=== PATIENT | female | born 1990 | race Caucasian/White ===

== ENCOUNTER 2017-02-15 18:10 | Inpatient (IN) | payer OTHER ==
[~2017-02-15 18:10] MED LIST: ONDANSETRON HCL INJ/PF 4 MG/2 ML SDV ONE; PHENYLEPHRINE HCL INJ/PF 10 MG/1 ML SDV ONE; SUCCINYLCHOLINE CHLORIDE INJ 200 MG/10 ML VIAL ONE
[2017-02-15] MEDS ORDERED: RINGERS SOLUTION,LACTATED 1,000 ML IV PRN (18:38)
[2017-02-15] MEDS ORDERED: HYDROXYZINE PAMOATE 50 MG CAPSULE PO ONE (18:38)
[2017-02-15 18:42] LABS: APPEARANCE,URINE SLIGHTLY-CLOUDY; BILIRUBIN,URINE NEGATIVE (NEGATIVE); GLUCOSE, URINE NEGATIVE (NEGATIVE); KETONES,URINE 20 mg/dL (NEGATIVE); LEUKOCYTE ESTERASE,URINE LARGE (NEGATIVE); NITRITE,URINE NEGATIVE (NEGATIVE); PROTEIN,URINE NEGATIVE (NEGATIVE); URINE SPECIFIC GRAVITY 1.011; UROBILINOGEN,URINE NEGATIVE mg/dL (<2.0)
[2017-02-15 19:01] LABS: URINE BARBITURATES SCREEN NEGATIVE; URINE METHADONE SCREEN NEGATIVE; URINE OPIATES LOW NEGATIVE; URINE PHENCYCLIDINE SCREEN NEGATIVE
[2017-02-15] MEDS ORDERED: MORPHINE SULFATE 10 MG/ML INJ IV PRN (19:45)
[2017-02-15] MEDS ORDERED: PROMETHAZINE HCL INJ 25 MG/1 ML VIAL IV PRN ×2 (19:45→20:40)
[2017-02-15] MEDS ORDERED: MEPERIDINE HCL/PF INJ 25 MG/1 ML DISP.SYRIN IV PRN (19:45)
[2017-02-15] MEDS ORDERED: FENTANYL CITRATE INJ/PF 100 MCG/2 ML AMPUL IV PRN ×3 (19:45)
[2017-02-15] MEDS ORDERED: DIPHENHYDRAMINE HCL 50 MG/ML VIAL IV PRN (19:45)
[2017-02-15] MEDS ORDERED: FENTANYL CITRATE INJ/PF 100 MCG/2 ML AMPUL ONE ×2 (19:46→20:19)
[2017-02-15] MEDS ORDERED: OXYTOCIN 10 UNIT/ML VIAL ONE (19:46)
[2017-02-15 19:51] LABS: HEMOGLOBIN 10.3 g/dL (12.0-15.5); HGB HCT DIFFERENCE -0.1; MEAN CORPUSCULAR HEMOGLOBIN 26.5 pg (27.0-33.4); MEAN CORPUSCULAR HGB CONC 33.3 g/dL (32.0-36.0); MEAN CORPUSCULAR VOLUME 80 fl (80-97); RED CELL DISTRIBUTION WIDTH 13.7 % (11.5-14.0)
[2017-02-15] MEDS ORDERED: PROMETHAZINE HCL INJ 25 MG/1 ML VIAL ONE (20:18)
[2017-02-15] MEDS ORDERED: DIPHENHYDRAMINE HCL 50 MG/ML VIAL ONE (20:19)
[2017-02-15 20:35] LABS: BAND NEUTROPHILS % (MANUAL) 1 % (3-5); BASOPHILS % (MANUAL) 0 % (0-2); EOSINOPHILS % (MANUAL) 0 % (0-6); LYMPHOCYTES % (MANUAL) 12 % (13-45); TOTAL CELLS COUNTED 100
[2017-02-15 20:37] LABS: ANISOCYTOSIS SLIGHT
[2017-02-15] MEDS ORDERED: OXYCODONE-ACETAMINOPHEN 5-325 MG TABLET PO PRN (20:40)
[2017-02-15] MEDS ORDERED: DIPH/PERTUSS(ACELL)/TETANUS VAC/PF 0.5 ML SYR (>=10YO) IM PRN (20:40)
[2017-02-15] MEDS ORDERED: ACETAMINOPHEN 325 MG TABLET PO PRN (20:40)
[2017-02-15] MEDS ORDERED: ACETAMINOPHEN 100 ML IV PRN (20:40)
[2017-02-15] MEDS ORDERED: MEASLES,MUMPS&RUBELLA VACC/PF 0.5 ML VIAL SUBCUT PRN (20:40)
[2017-02-15] MEDS ORDERED: OXYTOCIN/NORMAL SALINE 20 UNIT/1,000 ML RTUINJ IV PRN (20:40)
[2017-02-15] MEDS ORDERED: PROPOFOL INJ 200 MG/20 ML VIAL IV ONE (20:43)
[2017-02-15] MEDS ORDERED: MORPHINE SULFATE 10 MG/ML INJ ONE (20:48)
[2017-02-15] MEDS ORDERED: OXYTOCIN/NORMAL SALINE 20 UNIT/1,000 ML RTUINJ ONE (21:10)
--- NOTE | 2017-02-15 22:23 | OPERATIVE REPORT E ---
Operative Report NAME: JULIO MAN : 1990 AGE: 26Y DATE OF SURGERY: 02/15/2017 ROOM: LR200 PREOPERATIVE DIAGNOSIS: 1. IUP, 39 and 5. 2. Nonreassuring heart tones. POSTOPERATIVE DIAGNOSIS: 1. IUP, 39 and 5. 2. Nonreassuring heart tones. SURGEON: MICHAEL OBRIEN M.D. ANESTHESIA: Dr. Hobbs with general. FINDINGS: A male in cephalic presentation with Apgars of 8 and 9, weight 9 pounds 15 ounces. ESTIMATED BLOOD LOSS: 600 mL. COMPLICATIONS: None. INDICATIONS: Patient had come in as a labor check and during the course of her labor check, the heart rate monitoring showed heart tones in the 70s x10 minutes with a very slow return to baseline, which never actually made full baseline, baseline being 130s and only returned to 110s. A decision was made for an emergent , which the patient agreed to. PROCEDURE IN DETAIL: Patient was taken to the operating room, prepared, draped in normal sterile fashion in the supine position with a leftward tilt. A transverse skin incision was made with a scalpel and carried through to the underlying layer of fascia with the same scalpel. The fascia was then dissected from the rectus muscle bluntly and the rectus muscle was divided. The peritoneal cavity was entered bluntly. A bladder blade was inserted and the hysterotomy was nicked with a scalpel and extended laterally with surgeon finger fracture. The was then delivered atraumatically. The nose and mouth were suctioned with a suction bulb, the cord was clamped and cut, and the was handed off to awaiting pediatricians. The cord blood was collected. The placenta was removed manually. The uterus was exteriorized and cleared of clots and debris. The hysterotomy was closed with 0 Monocryl in a running, locked fashion. A second layer of the same suture was used to imbrication to ensure hemostasis. The uterus was returned to the abdomen. The peritoneal cavity was cleared of clots and debris. The rectus muscles and peritoneum were reapproximated with a mattress stitch of 2-0 chromic; the fascia was closed with 0 Vicryl; the subcutaneous layer was closed with plain catgut, and the skin was closed with 4-0 Vicryl. The patient tolerated the procedure well. Sponge, lap and needle counts were correct x2. The patient was taken to recovery in stable condition. DICTATING PHYSICIAN: MICHAEL OBRIEN M.D. [id number] PHY#: [id number] ID: [id number] JOB#: [id number] ACCT: [id number] cc:MICHAEL OBRIEN M.D. >
--- NOTE | 2017-02-15 22:43 | Delivery Summary ---
Del Sum A-C Datetime Report Generated by CPN: 02/15/2017 22:42 DELIVERY PERSONNEL DELIVERY PERSONNEL: [id number] Delivery Doctor:: Dorita Abbasi MD Anesthesiologist:: Papo Hobbs MD ELECTRIC REFRIGERATOR SERVICER:: Philip Avery, ELECTRIC REFRIGERATOR SERVICER Labor and Delivery Nurse:: Jamee Guzmán RN Nursery Nurse:: Angelica Ross RN Histology Teacher/ELECTRICAL ASSISTANT: Tanja ST Rahat Histology Teacher/ELECTRICAL ASSISTANT: Johanna Semar, MATERIAL ASSEMBLER MATERNAL INFORMATION Delivery Anesthesia: General Medications After Delivery: Pitocin Drip 20 Units/1000ml NSS Estimated Blood Loss (ml): 500 Maternal Complications: Other Other Maternal Complications: non reassuring heart tones LABOR SUMMARY EDC: 02/17/2017 00:00 No. Babies in Womb: 1 Attempted: No Labor Anesthesia: None LABOR INFORMATION Reason for Induction: Not Applicable Onset of Labor: 02/15/2017 19:30 Oxytocin: N/A Group B Beta Strep: negative Antibiotics # of Doses: 1 Antibiotics Time of Last Dose: 1923 Name of Antibiotic Given: ancef 2g Steroids Given: None Reason Steroids Not Administered: Not Applicable MEMBRANES Membranes Rupture Method: Artificial Rupture of Membranes: 02/15/2017 19:38 Length of Rupture (hr): 0.02 Amniotic Fluid Color: Light Meconium Amniotic Fluid Amount: Moderate Amniotic Fluid Odor: Normal STAGES OF LABOR Stage 3 hr: 0 Stage 3 min: 1 Total Time in Labor hr: 0 Total Time in Labor min: 10 VAGINAL DELIVERY Episiotomy: None Laceration #1: None Laceration Extension #1: N/A CSECTION DELIVERY Primary Indication: Nonreassuring Status CSection Urgency: Emergency CSection Incidence: Primary Labor: N/A Elective: Nonelective CSection Incision: Lower Uterine Transverse BABY A INFORMATION Infant Delivery Date/Time: 02/15/2017 19:39 Method of Delivery: Born in Route : No : N/A Forceps: N/A Vacuum Extraction: N/A Shoulder Dystocia : No PRESENTATION/POSITION BABY A Presentation: Cephalic Cephalic Presentation: Vertex Vertex Position: Left Occipital Anterior Breech Presentation: N/A PLACENTA INFORMATION BABY A Placenta Delivery Time : 02/15/2017 19:40 Placenta Method of Delivery: Expressed Placenta Status: Delivered SCORES BABY A Heart Rate 1 min: >100 bpm Resp Effort 1 min: Good Cry Reflex Irritability 1 min: Cough or Sneeze or Pulls Away Muscle Tone 1 min: Active Motion Color 1 min: Blue/Pale Resuscitation Effort 1 min: Tactile Stimulation SCORE 1 MIN: 8 Heart Rate 5 min: >100 bpm Resp Effort 5 min: Good Cry Reflex Irritability 5 min: Cough or Sneeze or Pulls Away Muscle Tone 5 min: Active Motion Color 5 min: Body [place], Extremities Blue Resuscitation Effort 5 min: Tactile Stimulation SCORE 5 MIN: 9 INFORMATION BABY A Gestational Age at Delivery: 39.5 Gestational Status: Full Term- 39- 40.6 Weeks Infant Outcome : Liveborn Condition : Stable Sex: Male WEIGHT/LENGTH BABY A Birthweight (gm): 4495 Infant Weight (lb): 9 Weight (oz): 15 Infant Length (in): 22.00 Length (cm): 55.88 CORD INFORMATION BABY A No. Cord Vessels: 3 Nuchal Cord : N/A Cord Blood Taken: Yes-For Storage (Mom's Blood type +) Infant Suction: Mouth; Nose ASSESSMENT BABY A Skin to Skin: No
[2017-02-15] MEDS: RINGERS SOLUTION,LACTATED 1,000 ML IV PRN (22:52)
[2017-02-15] MEDS ORDERED: KETOROLAC TROMETHAMINE INJ/PF 30 MG/1 ML SDV ONE (23:11)
[2017-02-15] MEDS: KETOROLAC TROMETHAMINE INJ/PF 30 MG/1 ML SDV IV SCH (23:14)
--- NOTE | 2017-02-16 01:00 | Admission Physical ---
Datetime Report Generated by CPN: 02/16/2017 01:00 CURRENT ADMISSION Chief Complaint: Uterine Contractions Indication for Induction: Not Applicable Indication for Induction: Term, Intrauterine ; Obstetrical Complication Admit Plan: Admit to Unit; Initiate Section Protocol Admit Plan- Other: while in triage for labor check, FHTs decreased to70s for 10 min. emergent c/section performed ALLERGIES Medication Allergies: No Medication Allergies: No Known Allergies (04/08/2013) Latex: No Latex Allergies Food Allergies: apples, potatoes OBSTETRICAL HISTORY EDC: 02/17/2017 00:00 : 3 Para: 2 Term: 2 : 0 SAB: 0 IAB: 0 Ectopic: 0 Livin Cesareans: 0 VBACs: 0 Multiple Births: 0 Gestational Diabetes: No Rh Sensitization: No Incompetent Cervix: No ZOHREH: No Infertility: No ART Treatment: No Uterine Anomaly: No IUGR: No Hx Previous C/S: No Macrosomia: No Hx Loss/Stillborn: No PIH: No Hx : No Placenta Previa/Abruption: No Depression/PP Depression: Yes PTL/PROM: No Post Hemorrhage: No Current Procedures: Ultrasound; NST Obstetrical History Comments: G1-41.1 girl no induction-9llbs 11oz G2-38 girl induced for colystasis-9lbs 7oz G-3-current SEE RECORDS Alcohol: No Marijuana : No Cocaine: No Other Illicit Drugs: No Cigarettes: Former Smoker. [id number] Cigarette Frequency: 5 - 10 per day Cigarette Comments: stopped smoking 3 years ago MEDICAL HISTORY Blood Transfusion: No Pulmonary Disease (Asthma, TB): Yes Breast Disease: No Hypertension: No Rooming House Inspector Surgery: No Heart Disease: No Hosp/Surgery: Yes Autoimmune Disorder: No Anesthetic Complications: No Kidney Disease: No Abnormal Pap Smear: Yes Neuro/Epilepsy: No Psychiatric Disorders: No Other Medical Diseases: No Hepatitis/Liver Disease: No Significant Family History: No Varicosities/Phlebitis: No Trauma/Violence : No Thyroid Dysfunction: No Medical History Comments: childhood asthma, colon biopsy, wisdom teeth, depression/anxiety INFECTIOUS HISTORY Gonorrhea: No Genital Herpes: No Tuberculosis: No Syphilis: No Hepatitis: No HIV/AIDS Exposure: No Rash or Viral Illness: No HPV: Yes PHYSICAL EXAM General: Normal HEENT: Normal Neurologic: Normal Thyroid: Normal Heart: Normal Lungs: Normal Breast: Normal Back: Normal Abdomen: Normal Genitourinary Exam: Normal Extremities: Normal DTRs: Normal Pelvic Type: Adequate Vital Signs: Reviewed VAGINAL EXAM Dilatation: 0 Effacement: 90 Station: -2 MEMBRANES Pooling: Negative Membranes: Intact FETUS A EGA: 39.5 Monitoring: External US FHR- Baseline: 130 Variability: Minimal - Undetectable to <=5bpm Accelerations: Absent Decelerations: Prolonged FHR Category: Category III Estimated Weight (gm): 4000 Presentation: Vertex PLANS FOR LABOR AND DELIVERY Labor and Delivery: None Pain Management: Natural Feeding Preference: Breast Benefit of Breast Feed Discussed: Yes Circumcision: Yes INFORMED CONSENT Signature: with User ID: [email or web address]
[2017-02-16] MEDS: IBUPROFEN 800 MG TABLET PO SCH ×2 (06:49→22:43)
[2017-02-16] MEDS: KETOROLAC TROMETHAMINE INJ/PF 30 MG/1 ML SDV IV SCH ×2 (06:51→13:38)
[2017-02-16] MEDS: RINGERS SOLUTION,LACTATED 1,000 ML IV PRN (06:52)
[2017-02-16] MEDS: MORPHINE SULFATE 10 MG/ML INJ IV PRN ×2 (08:09→12:41)
[2017-02-16 08:24] LABS: HEMATOCRIT 24.4 % (36.0-47.0); HGB HCT DIFFERENCE 0.2; MEAN CORPUSCULAR HEMOGLOBIN 26.6 pg (27.0-33.4); MEAN CORPUSCULAR HGB CONC 33.4 g/dL (32.0-36.0); MEAN CORPUSCULAR VOLUME 79 fl (80-97); RED BLOOD COUNT 3.07 10^6/uL (3.72-5.28); RED CELL DISTRIBUTION WIDTH 13.8 % (11.5-14.0); WHITE BLOOD COUNT 18.5 10^3/uL (4.0-10.5)
[2017-02-16 08:29] LABS: HEMOGLOBIN 8.2 g/dL (12.0-15.5)
[2017-02-16] MEDS: PRENATAL VITAMIN W DHA CAPSULE PO SCH (09:14)
[2017-02-16] MEDS: DOCUSATE SODIUM 100 MG CAPSULE PO SCH ×2 (09:15→17:49)
--- NOTE | 2017-02-16 10:06 | PDOC PROGRESS REPORT ---
Subjective-OB Subjective: Post Delivery Day: 26 year old. Denies any needs at this time Doing well, holding baby, states baby's heart rate was low and needed a CS, pain under control, eating and taking fluids, feels like she needs to pass gas, Physical Exam (OB) Vital Signs: Temp Pulse Resp BP Pulse Ox 98.7 F 98 16 114/56 L 97 02/16/17 08:14 02/16/17 08:14 02/16/17 08:14 02/16/17 08:14 02/16/17 08:14 Intake & Output 02/15/17 02/16/17 02/17/17 06:59 06:59 06:59 Output Total 600 Balance -600 - PIH/Pre-Eclampsia DTR's: 1 + Clonus: Negative Headache: Absent Epigastric Pain: No Visual Changes: No - Dressing Removed: No Incision: Dressing Closure Type: op site - Lochia Lochia Amount: Scant < 10 ml Lochia Color: Rubra/Red - Abdomen Description: Soft, Flat Hernia Present: No Fundal Description: Firm, Midline Fundal Height: u/u - u/2 Objective-Diagnostic Laboratory: 02/16/17 07:26 02/15/17 02/15/17 02/15/17 18:24 19:28 19:28 WBC 20.0 H RBC 3.90 Hgb 10.3 L Hct 31.0 L MCV 80 MCH 26.5 L MCHC 33.3 RDW 13.7 Plt Count 264 Seg Neutrophils % Not Reportable Lymphocytes % Not Reportable Monocytes % Not Reportable Eosinophils % Not Reportable Basophils % Not Reportable Absolute Neutrophils Not Reportable Absolute Lymphocytes Not Reportable Absolute Monocytes Not Reportable Absolute Eosinophils Not Reportable Absolute Basophils Not Reportable Urine Color YELLOW Urine Appearance SLIGHTLY-CLOUDY Urine pH 6.0 Ur Specific [place] 1.011 Urine Protein NEGATIVE Urine Glucose (UA) NEGATIVE Urine Ketones 20 H Urine Blood LARGE H Urine Nitrite NEGATIVE Ur Leukocyte Esterase LARGE H Blood Type B POSITIVE Antibody Screen NEGATIVE 02/16/17 07:26 WBC 18.5 H RBC 3.07 L Hgb 8.2 L D Hct 24.4 L MCV 79 L MCH 26.6 L MCHC 33.4 RDW 13.8 Plt Count 238 Seg Neutrophils % Lymphocytes % Monocytes % Eosinophils % Basophils % Absolute Neutrophils Absolute Lymphocytes Absolute Monocytes Absolute Eosinophils Absolute Basophils Urine Color Urine Appearance Urine pH Ur Specific [place] Urine Protein Urine Glucose (UA) Urine Ketones Urine Blood Urine Nitrite Ur Leukocyte Esterase Blood Type Antibody Screen Assessment and Plan(PN) - Assessment and Plan (1) Delivery by section of full-term infant Is this a current diagnosis for this admission?: Yes (2) Anemia Qualifiers: Other causes of anemia: acute posthemorrhagic Is this a current diagnosis for this admission?: Yes - Time Spent with Patient Time with patient: Less than 15 minutes Medications reviewed and adjusted accordingly: Yes - Disposition Anticipated Discharge: Home Within: within 24 hours
[2017-02-16] MEDS: OXYCODONE-ACETAMINOPHEN 5-325 MG TABLET PO PRN ×3 (13:40→23:28)
[2017-02-16] MEDS: SIMETHICONE 80 MG TAB.CHEW PO PRN ×2 (13:50→19:14)
[2017-02-17] MEDS: IBUPROFEN 800 MG TABLET PO SCH ×2 (02:39→08:07)
[2017-02-17] MEDS: OXYCODONE-ACETAMINOPHEN 5-325 MG TABLET PO PRN (03:07)
[2017-02-17] MEDS: SIMETHICONE 80 MG TAB.CHEW PO PRN (08:08)
[2017-02-17] MEDS: PRENATAL VITAMIN W DHA CAPSULE PO SCH (09:31)
[2017-02-17] MEDS: DOCUSATE SODIUM 100 MG CAPSULE PO SCH (09:31)
[2017-02-17 10:41] LABS: ADD HIVPANEL? NO; HIV (1 AND 2) ANTIBODY NEGATIVE (NEGATIVE)
--- NOTE | 2017-02-17 12:31 | PDOC DISCHARGE SUMMARY ---
Final Diagnosis Discharge Date: 02/17/17 - Final Diagnosis (1) Anemia complicating , third trimester Is this a current diagnosis for this admission?: Yes (2) Delivery by emergency section Is this a current diagnosis for this admission?: Yes (3) Delivery by section of full-term infant Is this a current diagnosis for this admission?: Yes (4) Anemia Is this a current diagnosis for this admission?: Yes Discharge Data - Discharge Medication Home Medications: Miconazole Nitrate [Monistat 7] 44 gm VG DAILY 04/08/13 Vits96/Iron Fum/Folic [ Tablet] 1 each PO DAILY 04/08/13 Reason(s) for Admission: Ceasarean Section-Primary, Status Procedures: Ultrasound Intrapartum Procedure(s): : Low Cervical, Transverse - Diagnosis Test Laboratory: Temp Pulse Resp BP Pulse Ox 98.4 F 102 H 17 105/65 97 02/17/17 09:18 02/17/17 09:18 02/17/17 09:18 02/17/17 07:58 02/17/17 09:18 02/15/17 02/15/17 02/16/17 18:24 19:28 07:26 RBC 3.90 3.07 L Hgb 10.3 L 8.2 L D Hct 31.0 L 24.4 L Urine Opiates Screen NEGATIVE - Discharge information/Instructions Discharge Activity: Balance Activity w/Rest, No Driving, No Lifting Over 10 Pounds, No Lifting/Push/Pulling, Pelvic Rest, No tub bath Discharge Diet: As Tolerated, Regular Disposition: HOME, SELF-CARE Follow up with: [facility] in: 1, Weeks - incision check
[2017-02-17 12:50] VITALS: BP 108/60
== END 2017-02-17 12:56 | disposition home or self-care (01) | DRG 766 ==
LOC: LC 18:10 → LR 19:26 → 2S 02-16 00:40
PROVIDERS: ADMIT Obstetrics & Gynecology; ATTEND Obstetrics & Gynecology
PROC: 10D00Z1 Extraction of Products of Conception, Low, Open Approach (ICD-10-PCS; principal; 2017-02-15)
DX: O76 Abnormality in fetal heart rate and rhythm complicating labor and delivery (principal); O26.03 Excessive weight gain in pregnancy, third trimester; O99.02 Anemia complicating childbirth; D50.9 Iron deficiency anemia, unspecified; O99.52 Diseases of the respiratory system complicating childbirth; J45.909 Unspecified asthma, uncomplicated; Z3A.39 39 weeks gestation of pregnancy; Z37.0 Single live birth
CPT/HCPCS: 1961; 36415; 80307; 81005; 85025; 85027; 86592; 86701; 86850; 86900; 86901; 87491; 87591; 88307; 94799; J0330; J1200; J1885; J2270; J2370; J2405; J2550; J2590; J2704; J3010; J3490; J7120